=== PATIENT | female | born 1965 | race Caucasian/White ===

== ENCOUNTER 2018-06-08 05:00 | Emergency (ER) | payer MEDICAID ==
[~2018-06-08] VITALS: Ht 154.9 cm; Wt 95.5 kg
[~2018-06-08 05:00] MED LIST: ACYC200C PO; ALBU18HF2 INH; CLON-529 PO; FLO44IN IH; FOLI1TAB16 PO; IBUP-75 PO; LOSA25TA96 PO; NAPH15DR8 EACHEYE; OMEP-50 PO; P-EP-35 PO; PROM25TA14 PO; SERT25TA PO
[2018-06-08] MEDS ORDERED: phenobarbital inj 260 MG in normal saline 100ml IV soln 99 ML IV STA (05:18)
[2018-06-08] MEDS ORDERED: normal saline 1000ML IV soln IVB ONE (05:20)
[2018-06-08] MEDS ORDERED: ondansetron/PF 4mg/2ml inj IV ONE (05:20)
[2018-06-08] MEDS ORDERED: magnesium oxide 400mg tablet PO ONE (05:20)
[2018-06-08] MEDS ORDERED: thiamine 100mg tablet PO ONE (05:20)
[2018-06-08 05:52] LABS: BASOPHILS % (AUTO) 0.7 % (0-1); EOSINOPHILS # (AUTO) 0.1 X10'3 (0-0.9); EOSINOPHILS % (AUTO) 2.1 % (0-6); HEMATOCRIT 31.1 % (35.0-45.0); HEMOGLOBIN 10.6 g/dl (12.0-16.0); LYMPHOCYTES % (AUTO) 39.4 % (21-51); MEAN CORPUSCULAR HEMOGLOBIN 29.8 PG (27.0-31.0); MEAN CORPUSCULAR HGB CONC 34.2 % (33.0-36.5); MEAN CORPUSCULAR VOLUME 87.3 FL (78-98); MEAN PLATELET VOLUME 6.8 FL (7.4-10.4); MONOCYTES # (AUTO) 0.3 X10'3 (0-0.9); MONOCYTES % (AUTO) 6.8 % (2-12); NEUTROPHILS # (AUTO) 2.5 X10'3 (1.8-7.7); PLATELET COUNT 269 X10'3 (140-440); RED BLOOD COUNT 3.56 X10'6 (4.20-5.60); RED CELL DISTRIBUTION WIDTH 13.5 % (11.5-14.5)
[2018-06-08 06:04] LABS: ALANINE AMINOTRANSFERASE 20 U/L (12-78); ALBUMIN 3.1 G/DL (3.4-5.0); ALBUMIN/GLOBULIN RATIO 0.7 (1.1-1.5); ALKALINE PHOSPHATASE 119 IU/L (46-116); ANION GAP 7 (8-16); ASPARTATE AMINO TRANSFERASE 20 U/L (10-37); BILIRUBIN,TOTAL 0.3 MG/DL (0.1-1.0); BLOOD UREA NITROGEN 13 MG/DL (7-18); BUN/CREATININE RATIO 14.9 (6.6-38.0); CALCIUM 7.9 MG/DL (8.5-10.1); CHLORIDE 105 MMOL/L (99-107); CREATININE 0.87 MG/DL (0.40-0.90); ETHANOL 0.071 GM/DL (0.0-0.010); GLUCOSE 145 MG/DL (70-104); MAGNESIUM 1.6 MG/DL (1.5-2.4); POTASSIUM 3.6 MMOL/L (3.5-5.1); SODIUM 140 MMOL/L (135-145); TOTAL CARBON DIOXIDE 27.7 MMOL/L (24-32); TOTAL PROTEIN 7.3 G/DL (6.4-8.2); eGFR 69 ML/MIN
[2018-06-08] MEDS ORDERED: phenobarbital inj 130 MG in normal saline 100ml IV soln 99 ML IV PRN (06:40)
[2018-06-08 08:05] VITALS: BP 158/93
== END 2018-06-08 08:07 | disposition home or self-care (01) ==
LOC: ER 05:01
DX: F10.129 Alcohol abuse with intoxication, unspecified (principal); D64.9 Anemia, unspecified; R73.9 Hyperglycemia, unspecified; Z79.899 Other long term (current) drug therapy; Y90.9 Presence of alcohol in blood, level not specified; Z60.2 Problems related to living alone
CPT/HCPCS: 36415; 80053; 80320; 82948; 83735; 85025; 93005; 96365; 96366; 96375; 99285; J2405; J2560; J7030; 96374

== ENCOUNTER 2020-02-28 16:13 | Emergency (ER) | payer MEDICAID ==
[~2020-02-28] VITALS: Ht 154.9 cm; Wt 100.0 kg
[2020-02-28 17:10] LABS: BASOPHILS % (AUTO) 0.4 % (0-1); EOSINOPHILS % (AUTO) 0 % (0-6); HEMOGLOBIN 12.5 g/dl (12.0-16.0); LYMPHOCYTES # (AUTO) 1.5 X10'3 (1.1-4.8); LYMPHOCYTES % (AUTO) 14.4 % (21-51); MEAN CORPUSCULAR HEMOGLOBIN 30.9 PG (27.0-31.0); MEAN CORPUSCULAR HGB CONC 34.6 g/dL (33.0-36.5); MEAN CORPUSCULAR VOLUME 89.4 FL (78-98); MEAN PLATELET VOLUME 7.4 FL (7.4-10.4); MONOCYTES # (AUTO) 0.4 X10'3 (0-0.9); MONOCYTES % (AUTO) 4.3 % (2-12); NEUTROPHILS # (AUTO) 8.2 X10'3 (1.8-7.7); NEUTROPHILS % (AUTO) 80.9 % (42-75); PLATELET COUNT 210 X10'3 (140-440); RED BLOOD COUNT 4.03 X10'6 (4.20-5.60); RED CELL DISTRIBUTION WIDTH 14.8 % (11.5-14.5); WHITE BLOOD COUNT 10.1 X10'3 (4.5-11.0)
[2020-02-28 17:20] LABS: PARTIAL THROMBOPLASTIN TIME 26 SECONDS (22-32)
[2020-02-28 17:24] LABS: ALANINE AMINOTRANSFERASE 91 U/L (12-78); ALBUMIN 3.7 G/DL (3.4-5.0); ALBUMIN/GLOBULIN RATIO 0.8 (1.1-1.5); ALKALINE PHOSPHATASE 101 IU/L (46-116); ANION GAP 18 (8-16); ASPARTATE AMINO TRANSFERASE 206 U/L (10-37); BILIRUBIN,TOTAL 1.1 MG/DL (0.1-1.0); BLOOD UREA NITROGEN 9 MG/DL (7-18); BUN/CREATININE RATIO 10.5 (6.6-38.0); CALCIUM 8.1 MG/DL (8.5-10.1); CHLORIDE 93 MMOL/L (99-107); CREATININE 0.86 MG/DL (0.40-0.90); GLUCOSE 117 MG/DL (70-104); POTASSIUM 3.3 MMOL/L (3.5-5.1); SODIUM 133 MMOL/L (135-145); TOTAL CARBON DIOXIDE 21.6 MMOL/L (24-32); TOTAL PROTEIN 8.4 G/DL (6.4-8.2); eGFR 69 ML/MIN
[2020-02-28 17:59] LABS: CREATINE KINASE 2513 U/L (26-192); ETHANOL 0.339 GM/DL (0.0-0.010)
[2020-02-28] MEDS ORDERED: normal saline 1000ML IV soln IVB ONE (18:05)
[2020-02-28 18:17] LABS: CLARITY,URINE SLIGHTLY CLOUDY (Clear); GLUCOSE, URINE NEGATIVE (Neg); KETONES,URINE >=80 mg/dl (Neg); LEUKOCYTE ESTERASE ,URINE NEGATIVE (Neg); NITRITES, URINE NEGATIVE (Neg); OCCULT BLOOD,URINE SMALL (Neg); PH,URINE 6.5 (4.8-8.0); PROTEIN,URINE 30 mg/dl (Neg); UROBILINOGEN,URINE 0.2 E.U/dL (0.2-1.0)
[2020-02-28 18:20] LABS: COLOR,URINE DARK YELLOW (Yellow); UA COLLECTION TYPE CLN CATCH MIDSTREAM
[2020-02-28] MEDS ORDERED: ibuprofen tablet 400 MG TABLET PO ONE (18:20)
[2020-02-28 18:23] LABS: SQUAMOUS EPITHELIAL CELL,UR MANY /LPF (FEW)
[2020-02-28 18:24] LABS: HYALINE CASTS 0-3 /LPF (NEGATIVE)
[2020-02-28 18:25] LABS: BACTERIA,URINE NONE SEEN /HPF (Neg); RBC,URINE 0-2 /HPF (0-2); WBC,URINE 0-4 /HPF (0-4)
[2020-02-28 18:29] LABS: URINE AMPHETAMINE SCREEN NEGATIVE (Neg); URINE BARBITUATE SCREEN NEGATIVE (Neg); URINE BENZODIAZEPINES SCREEN NEGATIVE (Neg); URINE CANNABINOID SCREEN NEGATIVE (Neg); URINE COCAINE SCREEN NEGATIVE (Neg); URINE METHADONE SCREEN NEGATIVE (Neg); URINE OPIATE SCREEN NEGATIVE (Neg); URINE PHENCYCLIDINE SCREEN NEGATIVE (Neg)
[2020-02-28] MEDS ORDERED: thiamine 100mg tablet PO ONE (19:30)
[2020-02-28] MEDS ORDERED: folic acid 1mg tablet PO ONE (19:30)
--- NOTE | 2020-02-28 20:12 | NUR ---
GAIT TEST, PATIENT WAS ABLE TO AMBULATE W/O ASSIST FOR >110 FEET, PA OBSERVED AND IS AWARE
[2020-02-28] MEDS ORDERED: potassium Cl 20 mEq SR tablet PO STA ×2 (20:21→21:03)
[2020-02-28] MEDS ORDERED: magnesium 2GM in 50ml NS 50 ML IV ONE (20:25)
[2020-02-28] MEDS ORDERED: LORazepam 2 mg/ml vial IV ONE ×2 (20:50→23:10)
--- NOTE | 2020-02-28 21:04 | NUR ---
PT VOMITED K-DUR TABLET. NEW ORDER FOR ZOFRAN
[2020-02-28] MEDS ORDERED: ondansetron/PF 4mg/2ml inj IV ONE (21:05)
--- NOTE | 2020-02-28 21:06 | NUR ---
PER PHARMACY, Magnesium safe to run at 50 ml an hour if PT not hypo tensive. SBP 170
[2020-02-28 23:33] VITALS: BP 159/65
== END 2020-02-28 23:29 | disposition home or self-care (01) ==
LOC: ER 16:15
DX: S50.11XA Contusion of right forearm, initial encounter (principal); S70.01XA Contusion of right hip, initial encounter; S80.02XA Contusion of left knee, initial encounter; S80.01XA Contusion of right knee, initial encounter; S30.1XXA Contusion of abdominal wall, initial encounter; S00.81XA Abrasion of other part of head, initial encounter; R42 Dizziness and giddiness; F10.920 Alcohol use, unspecified with intoxication, uncomplicated; Z79.899 Other long term (current) drug therapy; W18.30XA Fall on same level, unspecified, initial encounter; Y93.89 Activity, other specified; Y92.89 Other specified places as the place of occurrence of the external cause; Y99.9 Unspecified external cause status; Y90.9 Presence of alcohol in blood, level not specified
CPT/HCPCS: 36415; 70450; 71045; 72125; 73502; 74176; 80053; 80305; 80320; 81001; 82140; 82550; 85025; 85610; 85730; 93005; 96361; 96365; 96366; 96375; 96376; 99285; J2060; J2405; J3475; J7030